=== PATIENT | male | born 1950 | race Caucasian/White ===

== ENCOUNTER 2020-02-01 08:00 | Day surgery (SDC) | payer MEDICARE, BC ==
[2020-01-31 13:00] LABS: BASOPHILS # (AUTO) 0.1 X10'3 (0-0.2); BASOPHILS % (AUTO) 0.7 % (0-1); EOSINOPHILS # (AUTO) 0.1 X10'3 (0-0.9); EOSINOPHILS % (AUTO) 0.7 % (0-6); HEMATOCRIT 36.7 % (42.0-52.0); HEMOGLOBIN 12.2 g/dl (14.0-17.9); LYMPHOCYTES # (AUTO) 1.3 X10'3 (1.1-4.8); LYMPHOCYTES % (AUTO) 14.9 % (21-51); MEAN CORPUSCULAR HEMOGLOBIN 28.5 PG (27.0-31.0); MEAN CORPUSCULAR HGB CONC 33.3 g/dL (33.0-36.5); MEAN CORPUSCULAR VOLUME 85.5 FL (78-98); MEAN PLATELET VOLUME 7.7 FL (7.4-10.4); MONOCYTES # (AUTO) 0.8 X10'3 (0-0.9); MONOCYTES % (AUTO) 9.6 % (2-12); NEUTROPHILS # (AUTO) 6.5 X10'3 (1.8-7.7); NEUTROPHILS % (AUTO) 74.1 % (42-75); PLATELET COUNT 256 X10'3 (140-440); RED CELL DISTRIBUTION WIDTH 14.4 % (11.5-14.5); WHITE BLOOD COUNT 8.8 X10'3 (4.5-11.0)
[2020-01-31 13:08] LABS: ALBUMIN 3.9 G/DL (3.4-5.0); ANION GAP 9 (8-16); BLOOD UREA NITROGEN 60 MG/DL (7-18); BUN/CREATININE RATIO 18.4 (5.4-32.0); CALCIUM 9.1 MG/DL (8.5-10.1); CHLORIDE 110 MMOL/L (99-107); CREATININE 3.26 MG/DL (0.60-1.10); GLUCOSE 93 MG/DL (70-104); SODIUM 142 MMOL/L (135-145); TOTAL CARBON DIOXIDE 23.5 MMOL/L (24-32); eGFR 19 ML/MIN
[2020-02-01] VITALS (12 sets, daily range): BP systolic 90–118; BP diastolic 63–83
[~2020-02-01] VITALS: Ht 170.2 cm; Wt 104.4 kg
[~2020-02-01 08:00] MED LIST: CHOL100046 PO; CYCL100C PO; DIO80T PO; MYCO250C46 PO; NIA500ERT PO; SIMV10TA2 PO
[2020-02-01] MEDS ORDERED: SODI650T29 PO (08:30)
[2020-02-01] MEDS ORDERED: ALLO100T PO (08:30)
[2020-02-01] MEDS ORDERED: LOSA25TA96 PO (08:32)
[2020-02-01] MEDS ORDERED: CARV3.12 PO (08:32)
[2020-02-01] MEDS ORDERED: APIX5TAB3 PO (08:32)
[2020-02-01] MEDS ORDERED: AMLO5TAB4 PO (08:32)
[2020-02-01] MEDS ORDERED: amiodarone 150mg/dext, iso-os 100 ML IV ONE (08:50)
[2020-02-01] MEDS ORDERED: atropine 0.1mg/ml 10ml syringe IV ONE (08:50)
[2020-02-01] MEDS ORDERED: morphine 10mg/ml inj. IV ONE (08:50)
[2020-02-01] MEDS ORDERED: diphenhydrAMINE 25mg capsule PO ONE (08:50)
[2020-02-01] MEDS ORDERED: LORazepam 0.5 MG tablet PO ONE (08:50)
[2020-02-01] MEDS ORDERED: MIDAZolam 1mg/ml 10ml vial IV ONE (08:50)
[2020-02-01] MEDS ORDERED: pneumococcal 23-VAL P-sac vacc 25 mcg/0.5ml vial IMVAC ONE (09:55)
[2020-02-01] MEDS ORDERED: FLU VACC QS2020-21(6MOS UP)/PF 60 MCG/0.5 ML SYRINGE IMVAC ONE (09:55)
== END 2020-02-01 12:15 | disposition home or self-care (01) ==
LOC: SSTAY O 08:00
PROVIDERS: ATTEND Internal Medicine Cardiovascular Disease
DX: I48.0 Paroxysmal atrial fibrillation (principal); I10 Essential (primary) hypertension; E78.5 Hyperlipidemia, unspecified; J44.9 Chronic obstructive pulmonary disease, unspecified; M19.90 Unspecified osteoarthritis, unspecified site; I12.9 Hypertensive chronic kidney disease with stage 1 through stage 4 chronic kidney disease, or unspecified chronic kidney disease; N18.9 Chronic kidney disease, unspecified; E66.9 Obesity, unspecified; Z68.35 Body mass index [BMI] 35.0-35.9, adult; G47.30 Sleep apnea, unspecified; E78.49 Other hyperlipidemia; I25.2 Old myocardial infarction; I25.10 Atherosclerotic heart disease of native coronary artery without angina pectoris; Z95.0 Presence of cardiac pacemaker; Z79.899 Other long term (current) drug therapy; Z23 Encounter for immunization; Z95.1 Presence of aortocoronary bypass graft; Z94.1 Heart transplant status; Z80.9 Family history of malignant neoplasm, unspecified
CPT/HCPCS: 36415; 80048; 85025; 92960; 93005; 94799; G0008; J2250; J2270; Q0163; Q2039

== ENCOUNTER 2021-12-15 08:19 | Emergency (ER) | payer MEDICARE, BC ==
[~2021-12-15] VITALS: Ht 170.2 cm; Wt 106.8 kg
[~2021-12-15 08:19] MED LIST changes: +ALLO100T PO; +AMLO5TAB4 PO; +APIX5TAB3 PO; +CARV3.12 PO; -DIO80T PO; +LOSA25TA96 PO; -NIA500ERT PO; +SIMV-341 PO; -SIMV10TA2 PO; +SODI650T29 PO
[2021-12-15 08:38] VITALS: BP 170/86
[2021-12-15] MEDS ORDERED: NIRM1TAB PO (09:10)
== END 2021-12-15 09:26 | disposition home or self-care (01) ==
LOC: ER 08:20
DX: U07.1 COVID-19 (principal)
CPT/HCPCS: 99283

== ENCOUNTER 2022-01-03 17:23 | Inpatient (IN) | payer MEDICARE, BC ==
[~2022-01-03] VITALS: Ht 170.2 cm; Wt 104.5 kg
[~2022-01-03 17:23] MED LIST changes: +NIRM1TAB PO
[2022-01-03 18:43] LABS: BASOPHILS % (AUTO) 0.5 % (0-1); EOSINOPHILS # (AUTO) 0.1 X10'3 (0-0.9); EOSINOPHILS % (AUTO) 1.7 % (0-6); HEMATOCRIT 37.5 % (42.0-52.0); HEMOGLOBIN 12.4 g/dl (14.0-17.9); LYMPHOCYTES # (AUTO) 0.9 X10'3 (1.1-4.8); LYMPHOCYTES % (AUTO) 10.6 % (21-51); MEAN CORPUSCULAR HEMOGLOBIN 28.1 PG (27.0-31.0); MEAN CORPUSCULAR VOLUME 85.2 FL (78-98); MEAN PLATELET VOLUME 7.9 FL (7.4-10.4); MONOCYTES # (AUTO) 0.7 X10'3 (0-0.9); MONOCYTES % (AUTO) 8.7 % (2-12); NEUTROPHILS # (AUTO) 6.4 X10'3 (1.8-7.7); NEUTROPHILS % (AUTO) 78.5 % (42-75); PLATELET COUNT 217 X10'3 (140-440); RED CELL DISTRIBUTION WIDTH 14.8 % (11.5-14.5); WHITE BLOOD COUNT 8.2 X10'3 (4.5-11.0)
[2022-01-03 19:01] LABS: ANION GAP 11 (8-16); BILIRUBIN,TOTAL 0.6 MG/DL (0.1-1.0); BLOOD UREA NITROGEN 82 MG/DL (7-18); BUN/CREATININE RATIO 21.4 (5.4-32.0); CALCIUM 9.2 MG/DL (8.5-10.1); CHLORIDE 108 MMOL/L (99-107); CREATININE 3.83 MG/DL (0.60-1.10); GLUCOSE 104 MG/DL (70-104); SODIUM 140 MMOL/L (135-145); TOTAL CARBON DIOXIDE 20.7 MMOL/L (24-32); eGFR 16 ML/MIN
[2022-01-03 19:02] LABS: ALANINE AMINOTRANSFERASE 16 U/L (12-78); ALBUMIN/GLOBULIN RATIO 1.3 (1.1-1.5); ALKALINE PHOSPHATASE 79 IU/L (46-116); ASPARTATE AMINO TRANSFERASE 14 U/L (10-37); TOTAL PROTEIN 7.2 G/DL (6.4-8.2)
[2022-01-03 19:07] LABS: POTASSIUM 6.3 MMOL/L (3.5-5.1)
[2022-01-03] MEDS ORDERED: temazepam 15mg capsule PO PRN (21:00)
[2022-01-03] MEDS ORDERED: dextrose 50%-water 50ml dispensing syringe IV ONE (21:20)
[2022-01-03] MEDS ORDERED: furosemide 10 MG/1 ML 10ml inj IV ONE (21:20)
[2022-01-03] MEDS ORDERED: insulin regular, human 10 units/0.1 ml syringe IV ONE (21:20)
[2022-01-03] MEDS ORDERED: magnesium Cl slow-release 64mg tablet PO PRN (22:05)
[2022-01-03] MEDS ORDERED: potassium Cl 40MEQ/1/2NS 520ml 520 ML IV PRN (22:05)
[2022-01-03] MEDS ORDERED: acetaminophen 650mg rectal suppository RC PRN (22:05)
[2022-01-03] MEDS ORDERED: mag hydrox/Alum hydrox/simeth 30ml oral suspension PO PRN (22:05)
[2022-01-03] MEDS ORDERED: magnesium hydroxide 30ml (MOM) UD suspension PO PRN (22:05)
[2022-01-03] MEDS ORDERED: potassium Cl 20 mEq SR tablet PO PRN ×2 (22:05)
[2022-01-03] MEDS ORDERED: ondansetron 4mg rapidly disintigrating tab PO PRN (22:05)
[2022-01-03] MEDS ORDERED: ondansetron/PF 4mg/2ml inj IV PRN (22:05)
[2022-01-03] MEDS ORDERED: magnesium 4gm in 100ml NS 100 ML IV PRN (22:05)
[2022-01-03] MEDS ORDERED: acetaminophen 325mg tablet PO PRN ×2 (22:05)
[2022-01-03] MEDS: normal saline 1000ml 1,000 ML IV SCH (22:05)
[2022-01-04 01:26] LABS: CLARITY,URINE CLEAR (Clear); COLOR,URINE YELLOW (Yellow); GLUCOSE, URINE 100 mg/dl (Neg); KETONES,URINE NEGATIVE (Neg); LEUKOCYTE ESTERASE ,URINE NEGATIVE (Neg); NITRITES, URINE NEGATIVE (Neg); OCCULT BLOOD,URINE TRACE-INTACT (Neg); PROTEIN,URINE NEGATIVE (Neg); UROBILINOGEN,URINE 0.2 E.U/dL (0.2-1.0)
[2022-01-04 01:34] LABS: BACTERIA,URINE FEW /HPF (Neg); RBC,URINE 0-2 /HPF (0-2); SQUAMOUS EPITHELIAL CELL,UR FEW /LPF (FEW); UA COLLECTION TYPE CLN CATCH MIDSTREAM; WBC,URINE NONE SEEN /HPF (0-4)
[2022-01-04 04:16] LABS: BASOPHILS # (AUTO) 0.1 X10'3 (0-0.2); BASOPHILS % (AUTO) 0.9 % (0-1); EOSINOPHILS # (AUTO) 0.1 X10'3 (0-0.9); EOSINOPHILS % (AUTO) 1.5 % (0-6); HEMATOCRIT 35.6 % (42.0-52.0); HEMOGLOBIN 11.8 g/dl (14.0-17.9); LYMPHOCYTES % (AUTO) 10.4 % (21-51); MEAN CORPUSCULAR HEMOGLOBIN 28.1 PG (27.0-31.0); MEAN CORPUSCULAR VOLUME 85.2 FL (78-98); MEAN PLATELET VOLUME 8.1 FL (7.4-10.4); MONOCYTES # (AUTO) 0.8 X10'3 (0-0.9); MONOCYTES % (AUTO) 8.6 % (2-12); NEUTROPHILS # (AUTO) 7.6 X10'3 (1.8-7.7); NEUTROPHILS % (AUTO) 78.6 % (42-75); PLATELET COUNT 197 X10'3 (140-440); RED BLOOD COUNT 4.18 X10'6 (4.70-6.10); RED CELL DISTRIBUTION WIDTH 15.6 % (11.5-14.5); WHITE BLOOD COUNT 9.7 X10'3 (4.5-11.0)
[2022-01-04 04:40] LABS: ALANINE AMINOTRANSFERASE 15 U/L (12-78); ALBUMIN 3.6 G/DL (3.4-5.0); ALBUMIN/GLOBULIN RATIO 1.2 (1.1-1.5); ALKALINE PHOSPHATASE 73 IU/L (46-116); ANION GAP 12 (8-16); ASPARTATE AMINO TRANSFERASE 15 U/L (10-37); BILIRUBIN,TOTAL 0.7 MG/DL (0.1-1.0); BLOOD UREA NITROGEN 82 MG/DL (7-18); BUN/CREATININE RATIO 22.2 (5.4-32.0); CALCIUM 8.9 MG/DL (8.5-10.1); CHLORIDE 108 MMOL/L (99-107); GLUCOSE 104 MG/DL (70-104); MAGNESIUM 1.8 MG/DL (1.5-2.4); POTASSIUM 5.3 MMOL/L (3.5-5.1); SODIUM 139 MMOL/L (135-145); TOTAL CARBON DIOXIDE 18.6 MMOL/L (24-32); TOTAL PROTEIN 6.6 G/DL (6.4-8.2); eGFR 16 ML/MIN
--- NOTE | 2022-01-04 07:27 | NUR ---
Attempted to call report to [employer]ie but unavailable,will try again after 10 minutes.
[2022-01-04] MEDS ORDERED: docusate sod 100mg capsule PO SCH (08:00)
[2022-01-04] MEDS ORDERED: K and/or MAG REPLACEMENT MC SCH (08:00)
[2022-01-04] MEDS ORDERED: carVEDilol 3.125mg tablet PO SCH (08:00)
[2022-01-04] MEDS ORDERED: mycophenolate mofetil 250mg capsule PO SCH (08:00)
[2022-01-04] MEDS ORDERED: apixaban 5mg tablet PO SCH (08:00)
[2022-01-04] MEDS ORDERED: allopurinol 100mg tablet PO SCH (08:00)
[2022-01-04] MEDS: normal saline 1000ml 1,000 ML IV SCH (08:05)
[2022-01-04 08:30] VITALS: BP 159/72
--- NOTE | 2022-01-04 09:30 | NUR ---
Attempted to give patient his medication but he refused them. Patient states that he already took all his medication this morning.
[2022-01-04 11:00] VITALS: BP 118/71
[2022-01-04] MEDS ORDERED: FLO0.1T PO (13:25)
[2022-01-04] MEDS ORDERED: BICITRA PO (13:25)
[2022-01-04 13:37] LABS: TOTAL PROTEIN,URINE RANDOM 9.9 MG/DL
--- NOTE | 2022-01-04 15:21 | NUR ---
As ordered by Dr. Alejandra the patient has provided a urine sample for additional tests. A bladder scan prior to urination found a 272 ml urine (patient urinated approximately 2 hours ago 650 ml). After urination the bladder scan found approximately 2 ml urine. Patient has been educated about getting blood work done twice next week prior to his appointment with Dr. Travis on Thursday.
--- NOTE | 2022-01-04 18:13 | NUR ---
Patient was discharged at 1615 with instructions and verbalizing understanding of instructions, in wheelchair accompanied by nursing staff going home via private vehicle. All lines and tubes including PIV with intact cannula and tele monitor have been removed. Education has been provided at bedside and all questions have been answered. Patient is stable and appropriate for discharge.
== END 2022-01-04 16:18 | disposition home or self-care (01) | DRG 641 ==
LOC: ER 17:23 → ED HOLD 22:08 → EDBEDREQ 01-04 04:52 → PCU 3S 01-04 08:05
PROVIDERS: ADMIT Family Medicine; ATTEND Internal Medicine
DX: E87.5 Hyperkalemia (principal); N18.4 Chronic kidney disease, stage 4 (severe); Z94.1 Heart transplant status; D84.821 Immunodeficiency due to drugs; K21.9 Gastro-esophageal reflux disease without esophagitis; I48.91 Unspecified atrial fibrillation; T50.995A Adverse effect of other drugs, medicaments and biological substances, initial encounter; Z79.01 Long term (current) use of anticoagulants; Z79.52 Long term (current) use of systemic steroids; Z79.624 Long term (current) use of inhibitors of nucleotide synthesis; Z79.899 Other long term (current) drug therapy; Z85.828 Personal history of other malignant neoplasm of skin; Z86.16 Personal history of COVID-19; Z95.0 Presence of cardiac pacemaker; Z95.1 Presence of aortocoronary bypass graft; Z88.8 Allergy status to other drugs, medicaments and biological substances; Y92.89 Other specified places as the place of occurrence of the external cause; N25.89 Other disorders resulting from impaired renal tubular function
CPT/HCPCS: 36415; 80053; 81001; 82570; 83735; 84133; 84156; 84300; 85025; 87081; 93005; 96374; 96375; 99285; G0378; J1815; J1940; J3490; J7030

== ENCOUNTER 2022-02-06 11:30 | Emergency (ER) | payer MEDICARE, BC ==
[~2022-02-06] VITALS: Ht 171.4 cm; Wt 104.5 kg
[~2022-02-06 11:30] MED LIST changes: -AMLO5TAB4 PO; +BICITRA PO; -CHOL100046 PO; +FLO0.1T PO; -LOSA25TA96 PO; -NIRM1TAB PO; -SIMV-341 PO; -SODI650T29 PO
[2022-02-06 11:41] VITALS: BP 126/77
[2022-02-06 12:46] LABS: BASOPHILS % (AUTO) 0.5 % (0-1); EOSINOPHILS % (AUTO) 0.3 % (0-6); HEMATOCRIT 33.4 % (42.0-52.0); HEMOGLOBIN 11.2 g/dl (14.0-17.9); LYMPHOCYTES # (AUTO) 0.4 X10'3 (1.1-4.8); LYMPHOCYTES % (AUTO) 7.7 % (21-51); MEAN CORPUSCULAR HEMOGLOBIN 28.4 PG (27.0-31.0); MEAN CORPUSCULAR HGB CONC 33.5 g/dL (33.0-36.5); MEAN CORPUSCULAR VOLUME 84.9 FL (78-98); MEAN PLATELET VOLUME 8.6 FL (7.4-10.4); MONOCYTES # (AUTO) 0.4 X10'3 (0-0.9); MONOCYTES % (AUTO) 8.4 % (2-12); NEUTROPHILS # (AUTO) 3.9 X10'3 (1.8-7.7); NEUTROPHILS % (AUTO) 83.1 % (42-75); PLATELET COUNT 134 X10'3 (140-440); RED BLOOD COUNT 3.94 X10'6 (4.70-6.10); RED CELL DISTRIBUTION WIDTH 15.6 % (11.5-14.5); WHITE BLOOD COUNT 4.8 X10'3 (4.5-11.0)
[2022-02-06 13:53] LABS: ALANINE AMINOTRANSFERASE 49 U/L (12-78); ALKALINE PHOSPHATASE 115 IU/L (46-116); ANION GAP 10 (8-16); ASPARTATE AMINO TRANSFERASE 59 U/L (10-37); BILIRUBIN,TOTAL 1.2 MG/DL (0.1-1.0); BLOOD UREA NITROGEN 68 MG/DL (7-18); CALCIUM 8.1 MG/DL (8.5-10.1); CHLORIDE 104 MMOL/L (99-107); CREATININE 4.26 MG/DL (0.60-1.10); GLUCOSE 108 MG/DL (70-104); LIPASE 390 U/L (73-393); POTASSIUM 4.4 MMOL/L (3.5-5.1); SODIUM 137 MMOL/L (135-145); TOTAL PROTEIN 5.9 G/DL (6.4-8.2); eGFR 14 ML/MIN
== END 2022-02-06 23:22 | disposition left against medical advice (07) ==
LOC: ER 11:30
DX: R19.7 Diarrhea, unspecified (principal); Z53.21 Procedure and treatment not carried out due to patient leaving prior to being seen by health care provider
CPT/HCPCS: 36415; 80053; 83690; 85025

== ENCOUNTER 2022-05-28 07:10 | Day surgery (SDC) | payer MEDICARE, BC ==
[2022-05-27 12:31] LABS: BASOPHILS % (AUTO) 0.6 % (0-1); EOSINOPHILS % (AUTO) 0.4 % (0-6); HEMATOCRIT 36.1 % (42.0-52.0); LYMPHOCYTES # (AUTO) 1.2 X10'3 (1.1-4.8); LYMPHOCYTES % (AUTO) 20.5 % (21-51); MEAN CORPUSCULAR HEMOGLOBIN 31.2 PG (27.0-31.0); MEAN CORPUSCULAR HGB CONC 33.4 g/dL (33.0-36.5); MEAN CORPUSCULAR VOLUME 93.6 FL (78-98); MEAN PLATELET VOLUME 6.8 FL (7.4-10.4); MONOCYTES # (AUTO) 0.5 X10'3 (0-0.9); MONOCYTES % (AUTO) 8.6 % (2-12); NEUTROPHILS # (AUTO) 4.2 X10'3 (1.8-7.7); NEUTROPHILS % (AUTO) 69.9 % (42-75); PLATELET COUNT 211 X10'3 (140-440); RED BLOOD COUNT 3.86 X10'6 (4.70-6.10); RED CELL DISTRIBUTION WIDTH 13.8 % (11.5-14.5)
[2022-05-27 12:42] LABS: ALBUMIN 3.4 G/DL (3.4-5.0); ANION GAP 8 (8-16); BLOOD UREA NITROGEN 73 MG/DL (7-18); BUN/CREATININE RATIO 16.1 (10.0-20.0); CHLORIDE 107 MMOL/L (99-107); CREATININE 4.54 MG/DL (0.60-1.10); GLUCOSE 89 MG/DL (70-104); POTASSIUM 4.8 MMOL/L (3.5-5.1); SODIUM 138 MMOL/L (135-145); TOTAL CARBON DIOXIDE 22.6 MMOL/L (24-32); eGFR 13 ML/MIN
[2022-05-28] VITALS (15 sets, daily range): BP systolic 102–167; BP diastolic 65–121
[~2022-05-28] VITALS: Ht 170.2 cm; Wt 95.4 kg
[2022-05-28] MEDS ORDERED: MYCO360T3 PO (07:36)
[2022-05-28] MEDS ORDERED: ALLO100T PO (07:36)
[2022-05-28] MEDS ORDERED: PANT40TA54 PO (07:36)
[2022-05-28] MEDS ORDERED: LEVO25TA7 PO (07:36)
[2022-05-28] MEDS ORDERED: CYCL25CA PO (07:45)
[2022-05-28] MEDS ORDERED: AMIO200T61 PO (07:46)
[2022-05-28] MEDS ORDERED: LORazepam 0.5 MG tablet PO ONE (08:00)
[2022-05-28] MEDS ORDERED: diphenhydrAMINE 25mg capsule PO ONE (08:00)
[2022-05-28] MEDS ORDERED: atropine 0.1mg/ml 10ml syringe IV ONE (08:00)
[2022-05-28] MEDS ORDERED: normal saline 1000ml 1,000 ML IV SCH (08:00)
[2022-05-28] MEDS ORDERED: MIDAZolam 1mg/ml 10ml vial IV ONE (08:00)
[2022-05-28] MEDS ORDERED: morphine 10mg/ml inj. IV ONE (08:00)
[2022-05-28] MEDS ORDERED: amiodarone 150mg/dext, iso-os 100 ML IV ONE (08:00)
== END 2022-05-28 12:05 | disposition home or self-care (01) ==
LOC: SSTAY O 07:10
PROVIDERS: ATTEND Internal Medicine Cardiovascular Disease
DX: I48.92 Unspecified atrial flutter (principal); I50.32 Chronic diastolic (congestive) heart failure; I10 Essential (primary) hypertension
CPT/HCPCS: 36415; 80048; 85025; 85610; 92960; 93005; J2250; J2274; J7030

== ENCOUNTER 2023-01-16 10:03 | Inpatient (IN) | payer MEDICARE, BC ==
[~2023-01-16] VITALS: Ht 170.2 cm; Wt 78.5 kg
[~2023-01-16 10:03] MED LIST changes: +AMI200T PO; -BICITRA PO; -CARV3.12 PO; +CYCL25CA PO; -FLO0.1T PO; +LEVO25TA7 PO; +MYCO360T3 PO; +PANT40TA54 PO
[2023-01-16 10:58] LABS: BASOPHILS % (AUTO) 0.2 % (0-1); EOSINOPHILS # (AUTO) 0.1 X10'3 (0-0.9); EOSINOPHILS % (AUTO) 0.4 % (0-6); HEMATOCRIT 28.8 % (42.0-52.0); HEMOGLOBIN 9.4 g/dl (14.0-17.9); LYMPHOCYTES # (AUTO) 0.9 X10'3 (1.1-4.8); LYMPHOCYTES % (AUTO) 5.8 % (21-51); MEAN CORPUSCULAR HEMOGLOBIN 28.8 PG (27.0-31.0); MEAN CORPUSCULAR HGB CONC 32.7 g/dL (33.0-36.5); MEAN CORPUSCULAR VOLUME 88.2 FL (78-98); MEAN PLATELET VOLUME 7.6 FL (7.4-10.4); MONOCYTES # (AUTO) 0.7 X10'3 (0-0.9); MONOCYTES % (AUTO) 4.4 % (2-12); NEUTROPHILS # (AUTO) 13.6 X10'3 (1.8-7.7); NEUTROPHILS % (AUTO) 89.2 % (42-75); PLATELET COUNT 259 X10'3 (140-440); RED BLOOD COUNT 3.26 X10'6 (4.70-6.10); RED CELL DISTRIBUTION WIDTH 14.9 % (11.5-14.5); WHITE BLOOD COUNT 15.2 X10'3 (4.5-11.0)
[2023-01-16 11:17] LABS: ALANINE AMINOTRANSFERASE 18 U/L (12-78); ALBUMIN 3.3 G/DL (3.4-5.0); ALBUMIN/GLOBULIN RATIO 1.1 (1.1-1.5); ALKALINE PHOSPHATASE 138 IU/L (46-116); ANION GAP 18 (8-16); ASPARTATE AMINO TRANSFERASE 23 U/L (10-37); BILIRUBIN,TOTAL 0.5 MG/DL (0.1-1.0); BLOOD UREA NITROGEN 117 MG/DL (7-18); BUN/CREATININE RATIO 19.5 (10.0-20.0); CALCIUM 7.4 MG/DL (8.5-10.1); CHLORIDE 102 MMOL/L (99-107); CREATININE 6.01 MG/DL (0.60-1.10); GLUCOSE 105 MG/DL (70-104); POTASSIUM 4.9 MMOL/L (3.5-5.1); SODIUM 133 MMOL/L (135-145); TOTAL PROTEIN 6.2 G/DL (6.4-8.2); eCRCL 10 ML/MIN; eGFR 9 ML/MIN
[2023-01-16 11:23] LABS: MAGNESIUM 0.7 MG/DL (1.5-2.4); TOTAL CARBON DIOXIDE 13.3 MMOL/L (24-32)
[2023-01-16 11:30] LABS: LIPASE > 375 U/L (16-77)
[2023-01-16] MEDS ORDERED: normal saline 1000ml 1,000 ML IV ONE (13:10)
[2023-01-16] MEDS ORDERED: CefTRIAXone/D5W-Rocephin 1gm 50 ML IV ONE (13:10)
[2023-01-16] MEDS ORDERED: magnesium 2GM in 50ml NS 50 ML IV ONE (13:10)
--- NOTE | 2023-01-16 15:35 | NUR ---
paged rt for mixed venous.
[2023-01-16 16:28] LABS: BILIRUBIN,URINE NEGATIVE (Neg); CLARITY,URINE CLEAR (Clear); COLOR,URINE YELLOW (Yellow); GLUCOSE, URINE NEGATIVE (Neg); KETONES,URINE NEGATIVE (Neg); LEUKOCYTE ESTERASE ,URINE NEGATIVE (Neg); NITRITES, URINE NEGATIVE (Neg); OCCULT BLOOD,URINE NEGATIVE (Neg); PH,URINE 5.5 (4.8-8.0); PROTEIN,URINE TRACE mg/dl (Neg); UROBILINOGEN,URINE 0.2 E.U/dL (0.2-1.0)
[2023-01-16 16:32] LABS: UA COLLECTION TYPE VOIDED
[2023-01-16 16:33] LABS: BACTERIA,URINE NONE SEEN /HPF (Neg); MUCUS STRANDS FEW /LPF (Neg); RBC,URINE NONE SEEN /HPF (0-2); SQUAMOUS EPITHELIAL CELL,UR FEW /LPF (FEW); WBC,URINE NONE SEEN /HPF (0-4)
[2023-01-16 16:36] LABS: APTT 35 SECONDS (22-32); INR 1.1 INR
[2023-01-16] MEDS ORDERED: SODIUM BICARB 150mEq/D5W 1L 1,000 ML IV SCH (17:05)
[2023-01-16] MEDS ORDERED: potassium Cl 40MEQ/1/2NS 520ml 520 ML IV PRN (17:15)
[2023-01-16] MEDS ORDERED: HYDROcodone/acetaminophen 5mg/325mg tablet PO PRN (17:15)
[2023-01-16] MEDS ORDERED: magnesium hydroxide 30ml (MOM) UD suspension PO PRN (17:15)
[2023-01-16] MEDS ORDERED: acetaminophen 325mg tablet PO PRN (17:15)
[2023-01-16] MEDS ORDERED: magnesium 2GM in 50ml NS 50 ML IV PRN (17:15)
[2023-01-16] MEDS ORDERED: magnesium 4gm in 100ml NS 100 ML IV PRN (17:15)
[2023-01-16] MEDS ORDERED: HYDROmorphone inj. 0.5 MG/0.5 ML DISP.SYRIN IV PRN (17:15)
[2023-01-16] MEDS ORDERED: magnesium Cl slow-release 64mg tablet PO PRN (17:15)
[2023-01-16] MEDS ORDERED: mag hydrox/Alum hydrox/simeth 30ml oral suspension PO PRN (17:15)
[2023-01-16] MEDS ORDERED: potassium Cl 20 mEq SR tablet PO PRN (17:15)
[2023-01-16] MEDS ORDERED: sodium bicarbonate (8.4%) inj. 50 MEQ in dextrose 5%-water 1,000 ML IV SCH (18:05)
[2023-01-16] MEDS: sodium bicarbonate 1meq/ml inj 150 ML in dextrose 5%-water 1,000 ML IV SCH (18:11)
[2023-01-16 18:47] LABS: PHOSPHORUS 5.2 MG/DL (2.3-4.5)
[2023-01-16 18:55] LABS: URIC ACID 5.6 MG/DL (3.5-7.2)
[2023-01-16] MEDS: K and/or MAG REPLACEMENT MC SCH (19:25)
[2023-01-16] MEDS ORDERED: CYAN-104 PO (19:41)
[2023-01-16] MEDS ORDERED: [UNRECOGNIZED DRUG - CODE] PO (19:41)
[2023-01-16] MEDS ORDERED: ONDA4TAB12 PO (19:41)
[2023-01-16] MEDS ORDERED: CHOL400T8 PO (19:41)
[2023-01-16] MEDS ORDERED: AZIT500T9 PO (19:41)
[2023-01-16] MEDS ORDERED: CYCL25CA7 PO (19:41)
[2023-01-16] MEDS ORDERED: APIX5TAB3 PO (19:41)
[2023-01-16] MEDS ORDERED: SIMV-341 PO (19:41)
--- NOTE | 2023-01-16 19:50 | NUR ---
Patient in room [facility] 4017. I have received report from BEKAH Donovan and had the opportunity to ask questions and assume patient care.
[2023-01-16 20:00] VITALS: RESP 16; O2SAT 96
[2023-01-16] MEDS ORDERED: heparin, porcine 5000 units/ml vial SQ SCH (20:00)
[2023-01-16] MEDS ORDERED: MYCOPHENOLATE SODIUM PO SCH (20:00)
[2023-01-16] MEDS: docusate sod 100mg capsule PO SCH (20:00)
[2023-01-16] MEDS ORDERED: CYCL25CA PO ×3 (20:01→20:02)
[2023-01-16] MEDS ORDERED: MYCO250C46 PO (20:02)
[2023-01-16 20:22] VITALS: BP 155/55; PULSE 92; RESP 16; TEMP 98.1
[2023-01-16] MEDS: apixaban 5mg tablet PO SCH (21:11)
[2023-01-16] MEDS: mycophenolate mofetil 250mg capsule PO SCH (21:13)
[2023-01-16] MEDS: ondansetron/PF 4mg/2ml inj IV PRN (21:52)
[2023-01-16 22:00] VITALS: BP 131/67; PULSE 74; RESP 16; TEMP 98.1; O2SAT 96
[2023-01-16 22:24] LABS: TOTAL PROTEIN,URINE RANDOM 45.5 MG/DL
[2023-01-17 01:24] LABS: ABG HCO3 14.5 mmol/L (22.0-26.0); ABG OXYGEN SATURATION 97.4 % (94-97); ABG PCO2 (T) 26.5 mmHg (35.0-48.0); ABG PH (T) 7.355 (7.340-7.440); ABG PO2 (T) 99.4 mmHg (75.0-100.0); ALLEN'S TEST Modified; FCOHb 0.8 % (0.0-3.9); FHHb 2.6 % (0.0-5.0); FMetHb 0.3 % (0.0-1.5); FO2Hb 96.3 % (94-97); MODE ROOM AIR; PATIENT TEMPERATURE 36.4; TOTAL HEMOGLOBIN 7.8 G/dl (14.0-17.9)
[2023-01-17] MEDS: sodium bicarbonate 1meq/ml inj 150 ML in dextrose 5%-water 1,000 ML IV SCH ×2 (05:06→17:31)
[2023-01-17 05:59] LABS: BASOPHILS % (AUTO) 0.4 % (0-1); EOSINOPHILS # (AUTO) 0.1 X10'3 (0-0.9); EOSINOPHILS % (AUTO) 0.8 % (0-6); HEMATOCRIT 22.3 % (42.0-52.0); HEMOGLOBIN 7.4 g/dl (14.0-17.9); LYMPHOCYTES # (AUTO) 0.8 X10'3 (1.1-4.8); LYMPHOCYTES % (AUTO) 10.5 % (21-51); MEAN CORPUSCULAR HEMOGLOBIN 28.9 PG (27.0-31.0); MEAN CORPUSCULAR VOLUME 87.4 FL (78-98); MEAN PLATELET VOLUME 7.6 FL (7.4-10.4); MONOCYTES # (AUTO) 0.5 X10'3 (0-0.9); MONOCYTES % (AUTO) 6.1 % (2-12); NEUTROPHILS # (AUTO) 6.4 X10'3 (1.8-7.7); NEUTROPHILS % (AUTO) 82.2 % (42-75); PLATELET COUNT 207 X10'3 (140-440); RED BLOOD COUNT 2.55 X10'6 (4.70-6.10); RED CELL DISTRIBUTION WIDTH 14.6 % (11.5-14.5); WHITE BLOOD COUNT 7.8 X10'3 (4.5-11.0)
[2023-01-17 06:00] VITALS: BP 110/71; PULSE 71; RESP 16; TEMP 98.3; O2SAT 96
[2023-01-17 06:12] LABS: ALANINE AMINOTRANSFERASE 12 U/L (12-78); ALBUMIN 2.5 G/DL (3.4-5.0); ALBUMIN/GLOBULIN RATIO 1.1 (1.1-1.5); ALKALINE PHOSPHATASE 109 IU/L (46-116); ANION GAP 13 (8-16); ASPARTATE AMINO TRANSFERASE 17 U/L (10-37); BILIRUBIN,TOTAL 0.3 MG/DL (0.1-1.0); BLOOD UREA NITROGEN 114 MG/DL (7-18); BUN/CREATININE RATIO 19.9 (10.0-20.0); CALCIUM 7.2 MG/DL (8.5-10.1); CHLORIDE 106 MMOL/L (99-107); CREATININE 5.74 MG/DL (0.60-1.10); GLUCOSE 110 MG/DL (70-104); MAGNESIUM 1.8 MG/DL (1.5-2.4); PHOSPHORUS 5.5 MG/DL (2.3-4.5); POTASSIUM 4.6 MMOL/L (3.5-5.1); SODIUM 136 MMOL/L (135-145); TOTAL CARBON DIOXIDE 16.8 MMOL/L (24-32); TOTAL PROTEIN 4.8 G/DL (6.4-8.2); eCRCL 10 ML/MIN; eGFR 10 ML/MIN
--- NOTE | 2023-01-17 06:24 | NUR ---
Problems reprioritized. Patient report given, questions answered & plan of care reviewed with JUANITA Cook.
[2023-01-17] MEDS: K and/or MAG REPLACEMENT MC SCH ×2 (06:43→19:42)
[2023-01-17] MEDS: docusate sod 100mg capsule PO SCH ×2 (07:36→19:59)
[2023-01-17] MEDS: apixaban 5mg tablet PO SCH ×2 (07:43→20:03)
[2023-01-17] MEDS: mycophenolate mofetil 250mg capsule PO SCH ×2 (07:45→20:05)
[2023-01-17] MEDS: magnesium 2GM in 50ml NS 50 ML IV SCH ×3 (07:49→16:14)
[2023-01-17 08:08] VITALS: RESP 16; O2SAT 96
[2023-01-17 08:13] LABS: C DIFF ANTIGEN NEGATIVE (NEGATIVE); C DIFF SPECIMEN=DIARRHEA? ACCEPTABLE; C DIFFICILE TOXINS A&B NEGATIVE (Neg)
[2023-01-17 09:59] VITALS: BP 98/71; PULSE 71; RESP 12; TEMP 98.1; O2SAT 99
[2023-01-17] MEDS: NUT.TX.IMP.RENAL FXN,LAC-REDUC (Nepro) 237 ML VANILLA PO SCH ×2 (13:00→18:00)
[2023-01-17 18:00] VITALS: BP 136/71; PULSE 74; RESP 16; TEMP 97.4; O2SAT 100
[2023-01-17] MEDS: ondansetron/PF 4mg/2ml inj IV PRN (18:40)
--- NOTE | 2023-01-17 18:56 | NUR ---
Report given to Nafisa GRANT, pt had episode of nausea/vomiting and zofran given. Pt resting more comfortably at this time.
[2023-01-17 20:00] VITALS: RESP 16; O2SAT 100
[2023-01-17 22:00] VITALS: BP 142/68; PULSE 71; RESP 16; TEMP 97.6; O2SAT 98
[2023-01-18] VITALS (10 sets, daily range): BP systolic 101–146; BP diastolic 57–85; PULSE 65–86; RESP 14–20; TEMP 97.4–97.9; O2SAT 96–100
[2023-01-18] MEDS: magnesium 2GM in 50ml NS 50 ML IV SCH ×2 (00:16→08:00)
[2023-01-18] MEDS: ondansetron/PF 4mg/2ml inj IV PRN (04:07)
[2023-01-18] MEDS: sodium bicarbonate 1meq/ml inj 150 ML in dextrose 5%-water 1,000 ML IV SCH (04:11)
[2023-01-18 04:53] LABS: BASOPHILS % (AUTO) 0.3 % (0-1); EOSINOPHILS % (AUTO) 0.8 % (0-6); HEMOGLOBIN 7.1 g/dl (14.0-17.9); LYMPHOCYTES # (AUTO) 0.7 X10'3 (1.1-4.8); LYMPHOCYTES % (AUTO) 10.8 % (21-51); MEAN CORPUSCULAR HEMOGLOBIN 29.1 PG (27.0-31.0); MEAN CORPUSCULAR HGB CONC 34.2 g/dL (33.0-36.5); MEAN CORPUSCULAR VOLUME 85.2 FL (78-98); MEAN PLATELET VOLUME 7.7 FL (7.4-10.4); MONOCYTES # (AUTO) 0.4 X10'3 (0-0.9); MONOCYTES % (AUTO) 5.7 % (2-12); NEUTROPHILS # (AUTO) 5.3 X10'3 (1.8-7.7); NEUTROPHILS % (AUTO) 82.4 % (42-75); PLATELET COUNT 209 X10'3 (140-440); RED BLOOD COUNT 2.45 X10'6 (4.70-6.10); RED CELL DISTRIBUTION WIDTH 14.7 % (11.5-14.5); WHITE BLOOD COUNT 6.4 X10'3 (4.5-11.0)
[2023-01-18 05:02] LABS: HEMATOCRIT 20.8 % (42.0-52.0)
[2023-01-18 05:34] LABS: ALANINE AMINOTRANSFERASE 11 U/L (12-78); ALBUMIN 2.5 G/DL (3.4-5.0); ALKALINE PHOSPHATASE 109 IU/L (46-116); ANION GAP 11 (8-16); ASPARTATE AMINO TRANSFERASE 18 U/L (10-37); BILIRUBIN,TOTAL 0.4 MG/DL (0.1-1.0); BLOOD UREA NITROGEN 92 MG/DL (7-18); BUN/CREATININE RATIO 18.8 (10.0-20.0); CALCIUM 7.4 MG/DL (8.5-10.1); CHLORIDE 101 MMOL/L (99-107); GLUCOSE 124 MG/DL (70-104); MAGNESIUM 3.5 MG/DL (1.5-2.4); PHOSPHORUS 5.5 MG/DL (2.3-4.5); POTASSIUM 3.2 MMOL/L (3.5-5.1); SODIUM 136 MMOL/L (135-145); eCRCL 12 ML/MIN; eGFR 12 ML/MIN
--- NOTE | 2023-01-18 06:26 | NUR ---
Problems reprioritized. Patient report given, questions answered & plan of care reviewed with Joyce GRANT and made aware of critical hct, ordered 1 PRBC.
[2023-01-18 07:16] LABS: TOTAL PROTEIN 24HR,URINE 430.3 MG/24HR (28-141)
[2023-01-18] MEDS: docusate sod 100mg capsule PO SCH ×2 (07:39→20:00)
[2023-01-18] MEDS: mycophenolate mofetil 250mg capsule PO SCH ×2 (07:52→20:41)
[2023-01-18] MEDS: apixaban 5mg tablet PO SCH ×2 (07:52→20:38)
[2023-01-18] MEDS: NUT.TX.IMP.RENAL FXN,LAC-REDUC (Nepro) 237 ML VANILLA PO SCH ×2 (07:55→13:00)
[2023-01-18] MEDS ORDERED: ondansetron 4mg rapidly disintigrating tab PO PRN (08:25)
[2023-01-18] MEDS: potassium Cl 20 mEq SR tablet PO PRN ×3 (08:38→16:52)
[2023-01-18] MEDS: K and/or MAG REPLACEMENT MC SCH ×2 (08:39→20:00)
[2023-01-18] MEDS: metoclopramide 5 mg/ml inj IV SCH ×3 (08:39→20:41)
[2023-01-18] MEDS: NUT.TX.GLUC.INTOLER,LAC-FR,SOY (GLUCERNA) 237 ML PO SCH ×2 (13:40→18:35)
--- NOTE | 2023-01-18 14:32 | NUR ---
Malnutrition consult: Pt DX acute on chronic CKD, chronic diarrhea since January 2022, and Hypomagnesemia per EMR. Per RN malnutrition screen pt reports 24-33 pound wt loss and decreased in PO intake/appetite. Pt seen at bedside. Recent scaled wt this admit of 78.5kg (173 pounds) and wt hx in EMR of 95.4kg (210) and 104.55 kg (230 pounds) on 01/05/22 suggest weight loss has occurred. Pt reports UBW of 238 pounds and last weight that in February of this year which is consist with EMR wt hx indicating ~27% wt loss in 11 months. Wt loss is significant for malnutrition. Pt reports diarrhea for a long time and has been has experienced a decreased in intake during recurrent hospitalization this year including a hospitalization of 20 days in February of which was not able to eat anything for 12 days. Pt has been sick and has nausea on and off all year thus unable to keep most of his food down. Pt reports current nausea persist and the smell of food is unappetizing. Pt request Nepro though due to ONS shortage only able to provide Glucerna at this time. Pt presents with mild temporal wasting though no edema nor documented reduction in muscle strength. Due to wt loss and reported decreased intake pt meets a minimum of two malnutrition criteria at this time; MD notified. Pt continues on a renal diet with average PO intake 0-25% for last 4 meals. Pt declined any food preferences at this time and is content with Glucerna ONS at this time. LBM on 01/17 per EMR. Kanu continue to monitor and make recommendations as appropriate. Recommendations: 1.continue renal diet per MD 2.continue Glucerna TIDWM; Nepro is still out of stock 3.honor food preferences as able with improved nausea 4.no bowel care given persistent diarrhea 5.weekly scaled wts Addendum: 01/18/23 at [address] Amended: Links added.
[2023-01-18 18:25] LABS: OCCULT BLOOD STOOL POSITIVE (Neg)
--- NOTE | 2023-01-18 18:35 | NUR ---
Report given to Emanuel RN, pt slightly nauseated prior to shift change, pt given oral zofran and was going to wait to try any food to see if he feels better.
[2023-01-19 06:00] VITALS: BP 143/96; PULSE 87; RESP 18; TEMP 98.1; O2SAT 100
[2023-01-19 06:30] LABS: BASOPHILS % (AUTO) 0.5 % (0-1); LYMPHOCYTES # (AUTO) 0.9 X10'3 (1.1-4.8); MEAN CORPUSCULAR HEMOGLOBIN 29.2 PG (27.0-31.0); MEAN PLATELET VOLUME 7.7 FL (7.4-10.4); RED CELL DISTRIBUTION WIDTH 14.3 % (11.5-14.5); WHITE BLOOD COUNT 6.6 X10'3 (4.5-11.0)
[2023-01-19 06:33] LABS: EOSINOPHILS # (AUTO) 0.1 X10'3 (0-0.9); HEMATOCRIT 24.2 % (42.0-52.0); HEMOGLOBIN 8.1 g/dl (14.0-17.9); MEAN CORPUSCULAR HGB CONC 33.5 g/dL (33.0-36.5); MEAN CORPUSCULAR VOLUME 87.2 FL (78-98); MONOCYTES # (AUTO) 0.5 X10'3 (0-0.9); MONOCYTES % (AUTO) 8.2 % (2-12); NEUTROPHILS # (AUTO) 5.1 X10'3 (1.8-7.7); NEUTROPHILS % (AUTO) 77.3 % (42-75); PLATELET COUNT 208 X10'3 (140-440); RED BLOOD COUNT 2.78 X10'6 (4.70-6.10)
--- NOTE | 2023-01-19 06:34 | NUR ---
Problems reprioritized. Patient report given, questions answered & plan of care reviewed with JUANITA LAZO.
[2023-01-19 06:45] LABS: ALBUMIN 2.5 G/DL (3.4-5.0); ANION GAP 8 (8-16); BILIRUBIN,TOTAL 0.6 MG/DL (0.1-1.0); BLOOD UREA NITROGEN 80 MG/DL (7-18); CALCIUM 7.7 MG/DL (8.5-10.1); CHLORIDE 104 MMOL/L (99-107); GLUCOSE 87 MG/DL (70-104); MAGNESIUM 2.8 MG/DL (1.5-2.4); POTASSIUM 3.9 MMOL/L (3.5-5.1); SODIUM 140 MMOL/L (135-145); TOTAL CARBON DIOXIDE 28.1 MMOL/L (24-32); TOTAL PROTEIN 5.1 G/DL (6.4-8.2); eCRCL 13 ML/MIN; eGFR 12 ML/MIN
[2023-01-19 06:46] LABS: ALANINE AMINOTRANSFERASE 14 U/L (12-78); ALKALINE PHOSPHATASE 117 IU/L (46-116); ASPARTATE AMINO TRANSFERASE 19 U/L (10-37)
[2023-01-19] MEDS: metoclopramide 5 mg/ml inj IV SCH (07:37)
[2023-01-19] MEDS: apixaban 5mg tablet PO SCH ×2 (07:42→20:00)
[2023-01-19] MEDS: mycophenolate mofetil 250mg capsule PO SCH ×2 (07:43→20:54)
[2023-01-19] MEDS: docusate sod 100mg capsule PO SCH ×2 (07:45→20:00)
[2023-01-19] MEDS: NUT.TX.GLUC.INTOLER,LAC-FR,SOY (GLUCERNA) 237 ML PO SCH ×3 (07:45→18:00)
[2023-01-19 07:47] VITALS: RESP 18
[2023-01-19] MEDS: K and/or MAG REPLACEMENT MC SCH ×2 (08:00→20:00)
[2023-01-19 10:00] VITALS: BP 143/86; PULSE 82; RESP 14; TEMP 97.8; O2SAT 100
[2023-01-19 11:30] LABS: LIPASE 285 U/L (16-77)
[2023-01-19] MEDS: sevelamer carbonate 800mg tablet PO SCH ×2 (12:30→19:02)
[2023-01-19 15:46] LABS: % IRON SATURATION 46 % (11-46); IRON 73 UG/DL (53-167); TOTAL IRON BINDING CAPACITY 159 UG/DL (259-388)
[2023-01-19 16:00] LABS: FERRITIN 454 NG/ML (26-388)
[2023-01-19] MEDS ORDERED: EPOETIN ALFA-EPBX 20,000 UNIT/ML 1 ML MDV SQ ONE (16:45)
[2023-01-19] MEDS ORDERED: ringers solution, lacted 1,000 ML IV ONE (16:55)
[2023-01-19 18:00] VITALS: BP 148/82; PULSE 73; RESP 14; TEMP 98.3; O2SAT 100
--- NOTE | 2023-01-19 18:58 | NUR ---
Report to Cristine GRANT
[2023-01-19 20:00] VITALS: RESP 14; O2SAT 100
[2023-01-19 22:00] VITALS: BP 143/83; PULSE 82; RESP 16; TEMP 98.6; O2SAT 97
[2023-01-20 06:00] VITALS: BP 122/74; PULSE 77; RESP 16; TEMP 98.4; O2SAT 98
--- NOTE | 2023-01-20 06:40 | NUR ---
Problems reprioritized. Patient report given, questions answered & plan of care reviewed with JUANITA LAZO.
[2023-01-20 07:08] LABS: BASOPHILS % (AUTO) 0.6 % (0-1); EOSINOPHILS # (AUTO) 0.1 X10'3 (0-0.9); HEMATOCRIT 24.4 % (42.0-52.0); HEMOGLOBIN 8.1 g/dl (14.0-17.9); LYMPHOCYTES # (AUTO) 0.9 X10'3 (1.1-4.8); LYMPHOCYTES % (AUTO) 14.5 % (21-51); MEAN CORPUSCULAR HEMOGLOBIN 29.3 PG (27.0-31.0); MEAN CORPUSCULAR HGB CONC 33.1 g/dL (33.0-36.5); MEAN CORPUSCULAR VOLUME 88.3 FL (78-98); MEAN PLATELET VOLUME 7.6 FL (7.4-10.4); MONOCYTES # (AUTO) 0.5 X10'3 (0-0.9); MONOCYTES % (AUTO) 7.8 % (2-12); NEUTROPHILS # (AUTO) 4.7 X10'3 (1.8-7.7); NEUTROPHILS % (AUTO) 76.1 % (42-75); PLATELET COUNT 193 X10'3 (140-440); RED BLOOD COUNT 2.77 X10'6 (4.70-6.10); RED CELL DISTRIBUTION WIDTH 14.2 % (11.5-14.5); WHITE BLOOD COUNT 6.2 X10'3 (4.5-11.0)
[2023-01-20 07:23] LABS: ALANINE AMINOTRANSFERASE 16 U/L (12-78); ALBUMIN 2.5 G/DL (3.4-5.0); ALKALINE PHOSPHATASE 124 IU/L (46-116); ANION GAP 5 (8-16); ASPARTATE AMINO TRANSFERASE 23 U/L (10-37); BILIRUBIN,TOTAL 0.6 MG/DL (0.1-1.0); BLOOD UREA NITROGEN 65 MG/DL (7-18); BUN/CREATININE RATIO 15.1 (10.0-20.0); CALCIUM 7.6 MG/DL (8.5-10.1); CHLORIDE 103 MMOL/L (99-107); CREATININE 4.31 MG/DL (0.60-1.10); GLUCOSE 86 MG/DL (70-104); MAGNESIUM 2.1 MG/DL (1.5-2.4); PHOSPHORUS 3.8 MG/DL (2.3-4.5); POTASSIUM 4.3 MMOL/L (3.5-5.1); SODIUM 137 MMOL/L (135-145); TOTAL CARBON DIOXIDE 28.7 MMOL/L (24-32); eCRCL 14 ML/MIN; eGFR 13 ML/MIN
[2023-01-20 07:30] VITALS: RESP 18
[2023-01-20] MEDS: NUT.TX.GLUC.INTOLER,LAC-FR,SOY (GLUCERNA) 237 ML PO SCH ×2 (08:00→13:00)
[2023-01-20] MEDS: K and/or MAG REPLACEMENT MC SCH (08:00)
[2023-01-20] MEDS: docusate sod 100mg capsule PO SCH (08:00)
[2023-01-20] MEDS: sevelamer carbonate 800mg tablet PO SCH ×2 (08:30→12:30)
[2023-01-20] MEDS: apixaban 5mg tablet PO SCH (09:02)
[2023-01-20] MEDS: mycophenolate mofetil 250mg capsule PO SCH (09:03)
[2023-01-20 10:00] VITALS: BP 145/73; PULSE 70; RESP 14; TEMP 98.5; O2SAT 97
== END 2023-01-20 16:55 | disposition home or self-care (01) | DRG 393 ==
LOC: ER 10:03 → ED HOLD 17:19 → EDBEDREQ 19:43 → ORTHO 4S 20:09
PROVIDERS: ADMIT Internal Medicine; ATTEND Internal Medicine
PROC: 30233N1 Transfusion of Nonautologous Red Blood Cells into Peripheral Vein, Percutaneous Approach (ICD-10-PCS; principal; 2023-01-18)
DX: K52.1 Toxic gastroenteritis and colitis (principal); E43 Unspecified severe protein-calorie malnutrition; N17.0 Acute kidney failure with tubular necrosis; E87.29 Other acidosis; I42.9 Cardiomyopathy, unspecified; Z94.1 Heart transplant status; K86.1 Other chronic pancreatitis; D84.821 Immunodeficiency due to drugs; N18.4 Chronic kidney disease, stage 4 (severe); E83.42 Hypomagnesemia; E03.9 Hypothyroidism, unspecified; K21.9 Gastro-esophageal reflux disease without esophagitis; M10.9 Gout, unspecified; E87.5 Hyperkalemia; D64.9 Anemia, unspecified; E87.8 Other disorders of electrolyte and fluid balance, not elsewhere classified; E83.39 Other disorders of phosphorus metabolism; E78.5 Hyperlipidemia, unspecified; I48.91 Unspecified atrial fibrillation; T37.5X5A Adverse effect of antiviral drugs, initial encounter; Z95.1 Presence of aortocoronary bypass graft; Y92.89 Other specified places as the place of occurrence of the external cause; Z95.0 Presence of cardiac pacemaker; Z76.82 Awaiting organ transplant status; Z88.6 Allergy status to analgesic agent; Z79.899 Other long term (current) drug therapy; Z79.621 Long term (current) use of calcineurin inhibitor
CPT/HCPCS: 36415; 36430; 36600; 71045; 74176; 80053; 80158; 81001; 82272; 82570; 82728; 82800; 82803; 83540; 83550; 83605; 83615; 83690; 83735; 83930; 84100; 84133; 84156; 84300; 84484; 84540; 84550; 84560; 85018; 85025; 85610; 85730; 86885; 86900; 86901; 86920; 87040; 87045; 87046; 87081; 87324; 87449; 99291; 99292; A6258; A6402; G0378; J0696; J2405; J2765; J3475; J3490; J7030; J7040; J7070; J7120; J7515; J7517; P9016; Q4081

== ENCOUNTER 2023-02-21 10:49 | Emergency (ER) | payer MEDICARE, BC ==
[~2023-02-21] VITALS: Ht 170.2 cm; Wt 81.2 kg
[~2023-02-21 10:49] MED LIST changes: -AMI200T PO; +CHOL400T8 PO; +CYAN-104 PO; -CYCL100C PO; -LEVO25TA7 PO; +ONDA4TAB12 PO; +SIMV-341 PO
[2023-02-21 15:04] VITALS: BP 126/82; PULSE 75; RESP 16; TEMP 97.7; O2SAT 100
== END 2023-02-21 19:56 | disposition left against medical advice (07) ==
LOC: ER 10:49
DX: R79.9 Abnormal finding of blood chemistry, unspecified (principal); Z53.21 Procedure and treatment not carried out due to patient leaving prior to being seen by health care provider
CPT/HCPCS: 99281

== ENCOUNTER 2024-05-25 07:25 | Day surgery (SDC) | payer MEDICARE, BC ==
[2024-05-24 12:25] LABS: BASOPHILS # (AUTO) 0.1 X10'3 (0-0.2); BASOPHILS % (AUTO) 0.4 % (0-1); EOSINOPHILS # (AUTO) 0.2 X10'3 (0-0.9); EOSINOPHILS % (AUTO) 1.3 % (0-6); HEMATOCRIT 39.5 % (42.0-52.0); HEMOGLOBIN 12.7 g/dl (14.0-17.9); LYMPHOCYTES # (AUTO) 2.8 X10'3 (1.1-4.8); LYMPHOCYTES % (AUTO) 21.3 % (21-51); MEAN CORPUSCULAR HEMOGLOBIN 27.7 PG (27.0-31.0); MEAN CORPUSCULAR HGB CONC 32.2 g/dL (33.0-36.5); MEAN PLATELET VOLUME 6.9 FL (7.4-10.4); MONOCYTES # (AUTO) 0.8 X10'3 (0-0.9); NEUTROPHILS # (AUTO) 9.3 X10'3 (1.8-7.7); PLATELET COUNT 213 X10'3 (140-440); RED BLOOD COUNT 4.59 X10'6 (4.70-6.10); RED CELL DISTRIBUTION WIDTH 16.3 % (11.5-14.5); WHITE BLOOD COUNT 13.1 X10'3 (4.5-11.0)
[2024-05-24 12:42] LABS: INR 1.1 INR
[2024-05-24 12:51] LABS: ALBUMIN 3.7 G/DL (3.4-5.0); ANION GAP 11 (8-16); BLOOD UREA NITROGEN 67 MG/DL (7-18); BUN/CREATININE RATIO 14.9 (10.0-20.0); CALCIUM 7.8 MG/DL (8.5-10.1); CHLORIDE 111 MMOL/L (99-107); CREATININE 4.51 MG/DL (0.60-1.10); GLUCOSE 92 MG/DL (70-104); POTASSIUM 3.9 MMOL/L (3.5-5.1); SODIUM 144 MMOL/L (135-145); TOTAL CARBON DIOXIDE 22.2 MMOL/L (24-32); eGFR 13 ML/MIN
[2024-05-25] VITALS (8 sets, daily range): BP systolic 114–158; BP diastolic 76–112; PULSE 80–98; RESP 12–18; TEMP 97.9; O2SAT 97–100
[~2024-05-25] VITALS: Ht 171.4 cm; Wt 93.9 kg
[~2024-05-25 07:25] MED LIST changes: +ONDA-243 PO; -ONDA4TAB12 PO
[2024-05-25] MEDS ORDERED: MYCO250C46 PO (07:44)
[2024-05-25] MEDS ORDERED: APIX2.5T PO (07:44)
[2024-05-25] MEDS ORDERED: LORazepam 0.5 MG tablet PO ONE (07:45)
[2024-05-25] MEDS ORDERED: atropine 0.1mg/ml 10ml syringe IV ONE (07:45)
[2024-05-25] MEDS ORDERED: amiodarone 150mg/dext, iso-os 100 ML IV ONE (07:45)
[2024-05-25] MEDS ORDERED: diphenhydrAMINE 25mg capsule PO ONE (07:45)
[2024-05-25] MEDS ORDERED: DRON400T7 PO (07:46)
[2024-05-25] MEDS ORDERED: PRED5TAB PO (07:46)
[2024-05-25] MEDS: MIDAZolam 1mg/ml 10ml vial IV ONE (12:22)
[2024-05-25] MEDS: morphine 10mg/ml inj. IV ONE (12:23)
[2024-05-25] MEDS: normal saline 1000ml 1,000 ML IV SCH (12:23)
== END 2024-05-25 12:45 | disposition home or self-care (01) ==
LOC: SSTAY O 07:25
PROVIDERS: ATTEND Internal Medicine Cardiovascular Disease
DX: I48.0 Paroxysmal atrial fibrillation (principal); I48.92 Unspecified atrial flutter; J44.9 Chronic obstructive pulmonary disease, unspecified; I45.10 Unspecified right bundle-branch block; I11.0 Hypertensive heart disease with heart failure; I42.9 Cardiomyopathy, unspecified; I25.10 Atherosclerotic heart disease of native coronary artery without angina pectoris; I50.32 Chronic diastolic (congestive) heart failure; I36.1 Nonrheumatic tricuspid (valve) insufficiency; E78.5 Hyperlipidemia, unspecified; Z94.1 Heart transplant status; Z79.01 Long term (current) use of anticoagulants; Z79.899 Other long term (current) drug therapy; Z98.890 Other specified postprocedural states
CPT/HCPCS: 36415; 80048; 85025; 85610; 92960; 93005; J2250; J2270; J7030; Z7610; J2274